=== PATIENT | female | born 1980 | race Caucasian/White ===

== ENCOUNTER 2016-12-16 12:17 | Emergency (ER) | payer BC ==
[2016-12-16 13:11] LABS: #Basophils 0.1 thou/uL (0.0-0.2); #Lymphocytes 1.1 thou/uL (1.20-3.40); #Monocytes 0.4 thou/uL (0.11-0.59); #Neutrophils 9.1 thou/uL (1.40-6.50); %Basophils 0.7 % (0.0-1.0); %Eosinophils 0.3 % (0.0-10.0); %Lymphocytes 10.5 % (21.0-51.0); %Monocytes 3.4 % (0.0-10.0); Hematocrit 36.2 % (36.0-47.0); Mean Platelet Volume 8.3 fL (7.4-10.4); Red Blood Cell (RBC) Count 4.24 mill/uL (4.20-5.40); White Blood Cell (WBC) Count 10.7 thou/uL (4.8-10.8)
[2016-12-16 13:13] LABS: Anion Gap 18 mmol/L (10-20); BUN (Urea Nitrogen) 8 mg/dL (7.0-18.7); Calc. Creatinine Clearance 0 mL/min (70-130); Calcium 9.1 mg/dL (7.8-10.44); Carbon Dioxide 20 mmol/L (22-29); Chloride 103 mmol/L (98-107); Estimated GFR-MDRD Greater than 90
[2016-12-16] MEDS ORDERED: Ondansetron HCl/PF 4 MG/2 ML Vial ONE (13:29)
[2016-12-16] MEDS ORDERED: Acetaminophen 500 MG TAB ONE (15:06)
[2016-12-16 16:18] LABS: Bilirubin Small (Negative); Blood, Urine Trace (Negative); Glucose, Urine (Dipstick) Negative (Negative); Ketone, Urine Negative (Negative); Nitrite Negative (Negative); Protein, Urine (Dipstick) Negative (Neg-Trace)
[2016-12-16 16:21] LABS: Bacteria/HPF 1+ HPF (None Seen); Hyaline Casts/LPF 0-3 HYALINE CAST LPF (0-3 Hyaline); Squamous Epithelial 0-3 HPF (0-3); WBC/HPF 0-3 HPF (0-3)
== END 2016-12-16 16:41 | disposition home or self-care (01) ==
LOC: SCSER 12:17
DX: O23.41 Unspecified infection of urinary tract in pregnancy, first trimester (principal); O21.1 Hyperemesis gravidarum with metabolic disturbance; E86.0 Dehydration; O99.341 Other mental disorders complicating pregnancy, first trimester; F41.9 Anxiety disorder, unspecified; Z79.899 Other long term (current) drug therapy; Z3A.12 12 weeks gestation of pregnancy
CPT/HCPCS: 80048; 81003; 81015; 85025; 96361; 96374; J2405

== ENCOUNTER 2016-12-17 21:19 | Emergency (ER) | payer BC ==
[~2016-12-17 21:19] MED LIST: ISOVUE-370 76%-LOCM 1 ML ONE
[2016-12-17] MEDS ORDERED: Promethazine HCl 25 MG/ML VIAL ONE (22:16)
[2016-12-17 22:22] LABS: ALT (SGPT) 47 U/L (8-55); AST (SGOT) 26 U/L (5-34); Alkaline Phosphatase 129 U/L (40-150); Anion Gap 13 mmol/L (10-20); BUN (Urea Nitrogen) 6 mg/dL (7.0-18.7); Bilirubin, Total 0.3 mg/dL (0.2-1.2); Calc. Creatinine Clearance 0 mL/min (70-130); Calcium 9.2 mg/dL (7.8-10.44); Carbon Dioxide 23 mmol/L (22-29); Chloride 106 mmol/L (98-107); Estimated GFR-MDRD Greater than 90; Globulin 3.6 g/dL (2.4-3.5); Protein, Total 6.9 g/dL (6.0-8.3)
--- NOTE | 2016-12-18 00:03 | CT ---
EXAM: POSTCONTRAST FACE CT 12/17/16 HISTORY: Cellulitis. Facial swelling. Symptoms have worsened. Dizziness. Dizziness. Photophobia. COMPARISON: None. TECHNIQUE: Postcontrast face CT is performed in the axial plane. Reformatted images are submitted for interpret ation. FINDINGS: There is mild mucosal thickening of the ethmoid air cells. Maxillary sinuses also have minimal mucos al thickening as well as the sphenoid sinuses. Adequate aeration of the frontal sinuses. Visualized mastoid air cells are unremarkable. Pterygoid plates are intact. Bilateral zygomatic arches are intact. Bilateral ocular lens are approp riately located. Both globes are intact. Retrobulbar fat is preserved. Symmetric attenuation of the optic nerves and ocular rectus muscles. The osseous margins of the orbits are maintained. The osseous margins of the paranasal sinuses are m aintained. Left osteomeatal complex is patent. There is minimal hypoattenuation in the right osteomeatal comple x. Nasal septum is intact and midline. Maxilla and mandible do not demonstrate any evidence of fracture. Bilateral mandibular condyles are appropriately located. Upper cervical spine is unremarkable. No evidence of a nasal bone fracture. There is mild though non specific soft tissue swelling about the bridge of the nose. Incidental calcification of the left sty lohyoid ligament. IMPRESSION: 1. Mild nonspecific soft tissue swelling at the bridge of the nose. 2. No maxillofacial fracture. POS: RINA
[2016-12-18 00:28] LABS: #Lymphocytes 1.2 thou/uL (1.20-3.40); #Monocytes 0.4 thou/uL (0.11-0.59); #Neutrophils 9.1 thou/uL (1.40-6.50); %Basophils 0.1 % (0.0-1.0); %Eosinophils 0.3 % (0.0-10.0); %Lymphocytes 11.4 % (21.0-51.0); Hematocrit 33.4 % (36.0-47.0); Mean Platelet Volume 8.3 fL (7.4-10.4); Red Blood Cell (RBC) Count 3.76 mill/uL (4.20-5.40); White Blood Cell (WBC) Count 10.8 thou/uL (4.8-10.8)
[2016-12-18] MEDS ORDERED: Acetaminophen/Codeine 30-300mg Tablet ONE (00:58)
== END 2016-12-18 01:05 | disposition home or self-care (01) ==
LOC: ERS 21:19
DX: O99.89 Other specified diseases and conditions complicating pregnancy, childbirth and the puerperium (principal); R51 Headache; J34.89 Other specified disorders of nose and nasal sinuses; O99.341 Other mental disorders complicating pregnancy, first trimester; F41.9 Anxiety disorder, unspecified; Z3A.12 12 weeks gestation of pregnancy; Z79.899 Other long term (current) drug therapy
CPT/HCPCS: 70487; 80053; 85025; 96365; 96375; J1170; J2550

== ENCOUNTER 2019-12-24 11:26 | Emergency (ER) | payer BC ==
[2019-12-24 12:25] LABS: Bacteria/HPF 2+ HPF (None Seen); Bilirubin Negative (Negative); Blood, Urine Trace (Negative); Clarity Clear (Clear); Glucose, Urine (Dipstick) Normal (Negative); Ketone, Urine Negative (Negative); Leukocyte 250 Leu/uL (Negative); Nitrite Negative (Negative); Protein, Urine (Dipstick) Negative (Neg-Trace); RBC/HPF 0-3 HPF (0-3); Specific Gravity, Urine 1.007 (1.002-1.036); Urobilinogen Normal mg/dL (Less than 2); WBC/HPF Greater than 50 HPF (0-3); pH, Urine 5.5 (5.0-9.0)
[2019-12-24] MEDS ORDERED: cefTRIAXone\\ROCEPHIN 1 GM VIAL ONE (12:44)
[2019-12-24] MEDS ORDERED: Ondansetron PF 4 MG/2 ML Vial ONE (12:44)
[2019-12-24 12:52] LABS: #Lymphocytes 0.8 thou/uL (1.20-3.40); #Monocytes 0.2 thou/uL (0.11-0.59); #Neutrophils 2.7 thou/uL (1.40-6.50); %Basophils 0.3 % (0.0-1.0); %Lymphocytes 20.6 % (21.0-51.0); %Monocytes 5.1 % (0.0-10.0); %Neutrophils 73.1 % (42.0-75.0); Hemoglobin 13.3 g/dL (12.0-16.0); Mean Corpuscular HGB CONC 34.3 g/dL (32.0-36.0); Mean Corpuscular Hemoglobin 31.3 pg (27.0-31.0); Mean Corpuscular Volume 91.4 fL (78.0-98.0); Mean Platelet Volume 9.1 fL (7.4-10.4); Platelet Count 203 thou/uL (130-400); RBC Distribution Width 12.1 % (11.5-14.5); Red Blood Cell (RBC) Count 4.24 mill/uL (4.20-5.40); White Blood Cell (WBC) Count 3.7 thou/uL (4.8-10.8)
[2019-12-24 13:13] LABS: ALT (SGPT) 12 U/L (8-55); AST (SGOT) 18 U/L (5-34); Albumin 3.9 g/dL (3.5-5.0); Alkaline Phosphatase 46 U/L (40-110); Anion Gap 14 mmol/L (10-20); BUN (Urea Nitrogen) 10 mg/dL (7.0-18.7); Bilirubin, Total 0.3 mg/dL (0.2-1.2); CK (CPK) 25 U/L (29-168); Calc. Creatinine Clearance 0 mL/min (70-130); Calcium 8.2 mg/dL (7.8-10.44); Carbon Dioxide 22 mmol/L (22-29); Chloride 105 mmol/L (98-107); Estimated GFR-MDRD 85; Globulin 2.8 g/dL (2.4-3.5); Glucose 97 mg/dL (70-105); Potassium 3.9 mmol/L (3.5-5.1); Protein, Total 6.7 g/dL (6.0-8.3); Sodium 137 mmol/L (136-145)
--- NOTE | 2019-12-24 14:34 | RAD ---
EXAM: CHEST ONE VIEW HISTORY: Recent travel to [facility]. Positive Covid. Patient claims dysuria and right flank pain. COMPARISON: None FINDINGS: The cardiac silhouette and pulmonary vasculature are within normal limits. There is a minimal patchy nodular density at the right lung base which is probably related to superimposition of structures. Lungs are otherwise clear. There is no consolidation or pleural fluid seen. The osseous structures ar e intact. IMPRESSION: Ill-defined patchy nodular density right lung base probably due to superimposition of structures. How ever, follow-up chest x-ray is recommended. No definitive radiographic findings are seen to suggest findings related to viral pneumonitis. Chest x-ray does exhibit low sensitivity for evaluation of sub tle groundglass opacities which can be seen with viral pneumonitis.
== END 2019-12-24 15:19 | disposition home or self-care (01) ==
LOC: ERS 11:26
DX: U07.1 COVID-19 (principal); N39.0 Urinary tract infection, site not specified; F41.9 Anxiety disorder, unspecified; Z79.899 Other long term (current) drug therapy
CPT/HCPCS: 36415; 71045; 80053; 81003; 81015; 82550; 83605; 85025; 85379; 87040; 87077; 87086; 87186; 96361; 96365; 96375; J0696; J2405

== ENCOUNTER 2022-04-04 11:47 | Outpatient (CLI) | payer BC | END 2022-04-04 11:48 | disposition home or self-care (01) | LOC: BICMAMMO 11:47 | PROVIDERS: ATTEND Obstetrics & Gynecology | DX: Z12.31 Encounter for screening mammogram for malignant neoplasm of breast (principal); N63.24 Unspecified lump in the left breast, lower inner quadrant; N64.89 Other specified disorders of breast | CPT/HCPCS: 77063; 77067 ==

== ENCOUNTER 2022-04-18 08:39 | Outpatient (CLI) | payer BC | END 2022-04-18 08:40 | disposition home or self-care (01) | LOC: BICULT 08:39 | PROVIDERS: ATTEND Obstetrics & Gynecology | DX: N63.20 Unspecified lump in the left breast, unspecified quadrant (principal) | CPT/HCPCS: G0279 ==

== ENCOUNTER 2024-01-18 09:47 | Outpatient (CLI) | payer BC | END 2024-01-18 09:48 | disposition home or self-care (01) | LOC: BICMAMMO 09:47 | PROVIDERS: ATTEND Physician Assistant | DX: N63.25 Unspecified lump in the left breast, overlapping quadrants (principal) | CPT/HCPCS: 77066; G0279 ==